=== PATIENT | female | born 1950 ===

== ENCOUNTER 2021-11-03 10:18 | Day surgery (SDC) | payer BC ==
[2021-11-03] MEDS ORDERED: Ringers Lactate 1,000 ML IV ONE (10:25)
[2021-11-03] MEDS ORDERED: propofoL 200 MG/20 ML VIAL IV ONE (11:49)
--- NOTE | 2021-11-03 12:34 | ENDO RPT ---
[address], [address] COLONOSCOPY PROCEDURE REPORT EXAM DATE: 11/03/2021 PATIENT NAME: Sarah Gonzalez MR #: [id number] BIRTHDATE: 1950 ATTENDING: Sohan Oneil DR STATUS: outpatient PROPAGATOR: Marta Flores RN and Nidhi Youxiduo Tech INDICATIONS: The patient is a 71 yr old Female here for a colonoscopy due to Positive Cologuard Fecal DNA test PROCEDURE PERFORMED: Colonoscopy with biopsy - cold polypectomy MEDICATIONS: Per Anesthesia. ESTIMATED BLOOD LOSS: None CONSENT: The patient understands the risks and benefits of the procedure and understands that these risks include, but are not limited to: sedation, allergic reaction, infection, perforation and/or bleeding. Alternative means of evaluation and treatment include, among others: physical exam, x-rays, and/or surgical intervention. The patient elects to proceed with this endoscopic procedure. DESCRIPTION OF PROCEDURE: During intra-op preparation period all mechanical medical equipment was checked for proper function. Hand hygiene and appropriate measures for infection prevention was taken. Procedure, possible complications, alternatives including, but not limited to possibility of bleeding, perforation, tear, infection, sepsis, need for surgery, need for blood transfusion, were explained to the patient. After the risks, benefits and alternatives of the procedure were thoroughly explained, Informed consent was verified, confirmed and timeout was successfully executed by the treatment team. The patient was placed in the left lateral position. A digital rectal exam was performed and revealed internal hemorrhoids. After appropriate level of anesthesia, the scope was passed. The EC-[id number] ([id number]) endoscope was introduced through the anus and advanced to the terminal ileum which was intubated for a short distance. The quality of the prep was fair. The instrument was then slowly withdrawn as the colon was fully examined. Scope withdrawal time was 12 minutes. COLON FINDINGS: A small smooth flat polyp was found in the rectum. A polypectomy was performed with cold forceps. The resection was complete, the polyp tissue was completely retrieved and sent to histology. Small internal hemorrhoids were found. Mild diverticulosis was noted in the sigmoid colon. No bleeding was noted from the diverticulosis. Retroflexed views revealed no abnormalities. The scope was then completely withdrawn from the patient and the procedure terminated. ADVERSE EVENTS: There were no complications. IMPRESSIONS: 1. Small flat polyp was found in the rectum; polypectomy was performed with cold forceps 2. Small internal hemorrhoids RECOMMENDATIONS: 1. await biopsy results 2. avoid NSAIDS for 2 weeks 3. fiber rich diet 4. follow-up: office 2 week(s) 5. Monitor for any evidence of rectal bleeding. 6. hemorrhoidal hygiene 7. increase dietary water RECALL: for Colonoscopy, pending biopsy results. Sohan Oneil DR eSigned: Sohan Oneil DR 11/03/2021 12:33 PM cc: CPT CODES: ICD9 CODES: PATIENT NAME: Sarah Gonzalez MR#: [id number]
[2021-11-03 13:19] VITALS: TEMP 96
[2021-11-03 13:20] VITALS: O2SAT 96
[2021-11-03 13:21] VITALS: BP 128/74
== END 2021-11-03 13:24 | disposition home or self-care (01) ==
LOC: OR 10:18
PROVIDERS: ATTEND Surgery
PROC: 0DBP8ZX Excision of Rectum, Via Natural or Artificial Opening Endoscopic, Diagnostic (ICD-10-PCS; principal; 2021-11-03 12:00)
DX: K63.5 Polyp of colon (principal); R19.5 Other fecal abnormalities; K57.30 Diverticulosis of large intestine without perforation or abscess without bleeding; K64.8 Other hemorrhoids; Z20.822 Contact with and (suspected) exposure to COVID-19
CPT/HCPCS: 88305; 45380; U0002; J2704; J7120